=== PATIENT | male | born 1990 | race Caucasian/White ===

== ENCOUNTER 2018-03-01 14:56 | Emergency (ER) | payer SELFPAY ==
[2018-03-01 14:56] VITALS: BP 133/76; PULSE 119; RESP 16; TEMP 36.6; O2SAT 98; BMI 29.2
--- NOTE | 2018-03-01 15:39 | ED.VISSUMM ---
- ER Visit Summary Date of Service: 03/01/18 Chief Complaint: Back pain History of Present Illness: The patient is a 27 M who presents with back pain for the past 2 weeks. Patient states pain began gradually and has been getting worse. Patient states the pain is worse with sitting. Patient states nothing seems to help the pain. Patient describes the pain as sharp. Patient states the pain is localized to the right lower lumbar area. Patient denies any radiation of the pain. Patient denies any paresthesias or weakness. Patient denies any bowel or bladder changes. Patient denies any saddle anesthesia. Physical Examination: Vital signs are stable. Patient is afebrile. Patient is in no acute distress. Muscular skeletal exam revealed tenderness and spasm of the right lumbar paraspinal muscles. There is tenderness over the sciatic notch. There is no bony crepitance or step-off. There is no edema or ecchymosis. Straight leg raises were negative bilaterally. There is good range of motion of the lumbar spine. Strength is 5/5 bilaterally upper and lower extremities. There are no sensory deficits noted. Deep tendon reflexes are 2+/4 bilaterally. The remaining physical exam is within normal limits. Emergency Department Course and Treatment: Patient was advised that this is most likely muscular strain and sciatica. Patient was instructed to follow-up with his primary care physician in 5-7 days. Patient was given a prescription for Naprosyn. Patient was instructed to use ice to the area. Patient was instructed to return if worse in any way. Patient understood and was agreeable with the plan. All questions were answered. Disposition: Discharge home Impression: Sciatica This note was generated with [employer] dictation software. It may contain incorrect words, spelling, and punctuation that were not noted in review of the chart prior to signing ED Disposition - Plan for ED Patient: Disposition: Home or Assisted Living Chief Complaint: Back Diagnosis: Sciatica of right side Instructions: ED Sciatica Prescriptions: Naproxen [Naprosyn] 500 mg PO BID PRN #20 tab Referrals: Care Physician,No Primary [Primary Care Provider] -
--- NOTE | 2018-03-01 15:51 | ED.RN ---
PT GIVEN WRITTEN AND VERBAL DISCHARGE INSTRUCTIONS AND HOME GOING PRESCRIPTIONS. PT VERBALIZES UNDERSTANDING AND DENIES ANY FURTHER QUESTIONS. PT AMBULATES OUT OF DEPT BY SELF NO ASSISTANCE FROM STAFF INDICATED.
== END 2018-03-01 15:53 | disposition home or self-care (01) ==
PROVIDERS: Emergency Provider Emergency Medicine
DX: M54.31 Sciatica, right side (principal); M62.830 Muscle spasm of back; Z72.0 Tobacco use
CPT/HCPCS: 99282

== ENCOUNTER 2019-07-16 10:08 | Emergency (ER) | payer SELFPAY ==
[2019-07-16 10:09] VITALS: BP 162/88; PULSE 107; RESP 17; TEMP 36.8; O2SAT 97; BMI 27.4
--- NOTE | 2019-07-16 10:33 | RAD_ITS ---
STUDY: X-RAY CHEST REASON FOR EXAM: Male, 29 years old. COUGH, CP X 1 WK. TECHNIQUE: PA and lateral views of the chest. COMPARISON: July 23, 2014. FINDINGS: The lungs are clear and expanded. There is no demonstrated pleural abnormality. Normal size heart. Normal mediastinum and barbie. Normal visualized pulmonary arteries. Normal visualized aortic arch and descending thoracic aorta. Normal visualized thoracic spine. Normal visualized ribs, clavicles, and shoulders. There is no demonstrated abnormality of the visualized soft tissue structures of the upper abdomen. RAD/Chest PA and Lateral IMPRESSION: Stable examination. No radiographically evident acute cardiopulmonary disease. Electronically Signed: Chucho Carlin MD at 11:59 EST , Service support ,
--- NOTE | 2019-07-16 12:33 | ED.DCSUM_ITS ---
- ER Visit Summary Date of Service: 07/16/19 Chief Complaint: [Cough and left-sided chest pain] History of Present Illness: The patient is a 29 M [presents to the emergency department with complaint of a cough that is had for several weeks but thought he got better about a week and a half ago until yesterday started cough again. Patient states that he was exposed to his niece who also had some sort of an upper respiratory infection. Patient has had subjective fever at home. Patient states that at times he has blood-tinged sputum when he coughs. He denies recent travel.] Physical Examination: [HEENT-PERRLA, EOMI. Cranial nerves II through XII grossly intact. TMs clear. Mucous membranes moist. No adenopathy. Cardiovascular-regular rate and rhythm without murmur or ectopy Lungs-clear to auscultation, chest wall stable without crepitus or subcu emphysema Abdomen-normoactive bowel sounds, soft, nontender, no rebound or rigidity, no peritoneal signs. Extremities-intact ?4, normal range of motion, normal pulses, atraumatic] Test Results: [X-ray obtained was unremarkable.] Emergency Department Course and Treatment: [He was started on doxycycline] Treatment Plan: [We will be treated with doxycycline and Tessalon Perles. Patient will be referred to primary care physician agricultural extension officer for no doc for follow-up] Disposition: [Discharged home in stable condition] Impression: [Bronchitis] This note was generated with [employer] dictation software. It may contain incorrect words, spelling, and punctuation that were not noted in review of the chart prior to signing ED Disposition - Plan for ED Patient: Referrals: Care Physician,No Primary [Primary Care Provider] -
--- NOTE | 2019-07-16 12:35 | ED.DEP ---
ED Disposition - Plan for ED Patient: Instructions: BRONCHITIS, Antiobiotic Treatment (Adult) Prescriptions: Doxycycline 100 mg PO BID #20 cap Prescription Printed Benzonatate [Tessalon Perle] 200 mg PO TID PRN PRN #20 cap PRN Reason: Cough Prescription Printed Referrals: Care Physician,No Primary [Primary Care Provider] - Antonio Zurita III, MD [STAFF PHYSICIAN] - 5-7 Days
[2019-07-16] MEDS: Doxycycline 100 MG CAPSULE PO (12:47)
== END 2019-07-16 12:51 | disposition home or self-care (01) ==
LOC: ED 10:38
PROVIDERS: Emergency Provider Emergency Medicine
DX: J40 Bronchitis, not specified as acute or chronic (principal); R04.2 Hemoptysis; Z72.0 Tobacco use
CPT/HCPCS: 71046; 99283

== ENCOUNTER 2019-07-29 02:52 | Emergency (ER) | payer SELFPAY ==
[2019-07-29 02:53] VITALS: BP 137/74; PULSE 113; RESP 15; TEMP 36.6; O2SAT 98; BMI 28.3
--- NOTE | 2019-07-29 03:04 | ED.RN ---
PER PT REQUEST, [facility] [facility] CONTACTED TO SPEAK WITH THE PATIENT
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
== END 2019-07-29 03:47 | disposition left against medical advice (07) ==
PROVIDERS: Emergency Provider Emergency Medicine
DX: Z53.21 Procedure and treatment not carried out due to patient leaving prior to being seen by health care provider (principal)
CPT/HCPCS: 99281

== ENCOUNTER 2020-03-18 17:46 | Emergency (ER) | payer SELFPAY ==
[2020-03-18 17:46] VITALS: BP 134/84; PULSE 103; RESP 16; TEMP 36.1
[2020-03-18 17:47] VITALS: BP 134/84; PULSE 103; RESP 16; TEMP 36.1; BMI 27.9
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
--- NOTE | 2020-03-18 18:35 | ED.DEP ---
ED Disposition - Plan for ED Patient: Instructions: ED Fx Toe Closed Prescriptions: Naproxen [Naprosyn] 500 mg PO BID PRN #20 tablet Referrals: Hayden Hooks DPM [STAFF PHYSICIAN] -
--- NOTE | 2020-03-18 18:52 | ED.RN ---
DISCHARGE INSTRUCTIONS GIVEN TO AND REVIEWED WITH PATIENT, PATIENT DENIES QUESTIONS OR CONCERNS AND VOICES UNDERSTANDING OF DISCHARGE INSTRUCTIONS. PT AMBULATES OUT OF ROOM WITH STEADY GAIT.
== END 2020-03-18 18:53 | disposition home or self-care (01) ==
LOC: ED 18:32
PROVIDERS: Emergency Provider Emergency Medicine
DX: S92.912A Unspecified fracture of left toe(s), initial encounter for closed fracture (principal); W20.8XXA Other cause of strike by thrown, projected or falling object, initial encounter
CPT/HCPCS: 73630; 99283

== ENCOUNTER 2020-08-30 17:23 | Emergency (ER) | payer MEDICAID, SELFPAY ==
[2020-08-30 17:24] VITALS: BP 137/61; PULSE 95; RESP 16; TEMP 36; O2SAT 96; BMI 29.2
--- NOTE | 2020-08-30 17:50 | ED.VIS.GEN ---
History of Present Illness Chief Complaint: Sore Throat Informant: Patient Narrative: 30-year-old male with no significant past medical history presents with concern for congestion and sore throat that began 5 days ago. States that he was taking Tylenol thinking that it would maybe was the flu and that his congestion has persisted. States he has had a slight cough but is a current smoker. Denies any shortness of breath or chest pain. Denies any nausea, vomiting, abdominal pain, urinary symptoms. Past Medical History - Allergies and Home Meds Allergies/Adverse Reactions: Allergies No Known Allergies Allergy (Verified 08/30/20 17:23) Primary Care Physician: Care Physician,No Primary [Primary Care Provider] - Prior records reviewed: Yes Past Medical History: None Surgical History: no surgical history Lives: Alone Smoking Status: Current every day smoker Alcohol: None Drugs: None Review of Systems General: Denies: Chills, Fever, Sweats Eyes: Denies: Visual changes - bilaterally, Diplopia ENT: Reports: Sore throat. Denies: Rhinorrhea Cardiovascular: Denies: Chest pain, Palpitations Respiratory: Denies: Dyspnea, Cough, Dyspnea on exertion Gastrointestinal: Denies: Abdominal pain, Nausea, Vomiting, Diarrhea, Melena, Hematochezia Genitourinary: Denies: Dysuria, Hematuria, Frequency Musculoskeletal: Denies: Back pain, Extremity Pain Skin: Denies: Rash, Wounds Neurological: Denies: Headache, Weakness, Numbness Physical Exam Vital Signs/Narrative: Vital Signs Temp Pulse Resp BP Pulse Ox 08/30/20 17:24 96.8 F L 95 16 137/61 H 96 Inital Vital Signs reviewed: Yes General: Well nourished, Well developed, No Acute Distress Head: Normocephalic, Atraumatic Eyes: Perrl, EOMI ENT: Moist mucous membranes, No rhinorrhea, - - No posterior erythema or edema. Uvula midline. Neck: Supple, Nontender Cardiovascular: Regular rate, Regular rhythm, No murmurs Respiratory: No distress, CTA bilaterally, Chest nontender Abdomen: Soft, Nontender, Nondistended, Normal bowel sounds Back: Nontender, Normal Inspection Extremities: Nontender, No edema Skin: Normal color, No rash Neurological: Alert, Oriented x3, Cranial nerves II-XII grossly intact, Normal Strength, Normal Sensation Psychological: Normal affect, Normal Mood Diagnostic/Tx/Re-eval - Medical Decision Making Appears well and nontoxic. Vital signs within normal limits. No evidence of peritonsillar abscess. Rapid strep and Covid negative. Patient will be given Decadron in the emergency department and Flonase for home. Advised on continued supportive care with Tylenol as needed. Asked to return for new or worsening symptoms. Patient agreeable and discharged home in stable condition. Impression: 1. Viral pharyngitis ED Disposition - Plan for ED Patient: Disposition: Home or Assisted Living Instructions: ED Pharyngitis, Viral Prescriptions: Fluticasone 0.05% [Flonase Nasal [place]] 2 spray NASAL DAILY #1 nasal.sry Prescription Printed Referrals: Juan Manuel Chew DO [NON CLINICAL AFFILIATE] - 2 Days
[2020-08-30] MEDS: dexAMETHasone 10 MG/ML Vial PO.IVFORM (18:41)
[2020-08-30 18:42] VITALS: RESP 16
== END 2020-08-30 18:44 | disposition home or self-care (01) ==
PROVIDERS: Emergency Provider Emergency Medicine
DX: J02.8 Acute pharyngitis due to other specified organisms (principal); B97.89 Other viral agents as the cause of diseases classified elsewhere; R05 Cough; F17.200 Nicotine dependence, unspecified, uncomplicated
CPT/HCPCS: 87426; 87880; 99283

== ENCOUNTER 2022-10-17 14:47 | Emergency (ER) | payer MEDICAID, SELFPAY ==
[2022-10-17 14:48] VITALS: BP 142/88; PULSE 102; RESP 18; TEMP 36; O2SAT 96; BMI 29.2
--- NOTE | 2022-10-17 15:32 | ED.VIS.DENTA ---
HPI History of Present Illness Chief Complaint: Dental Detail of Chief Complaint: Dental pain right lower tooth Informant: patient Onset/Context/Timing Onset: Yesterday Context: Sudden Onset Timing: Continuous Current Severity: Mild Maximum Severity: Moderate Worsened by: Chewing Relieved by: NSAIDs and Topicals Associated Symptoms Assocated Symptom - Dental: jaw swelling and face swelling; Negative for fever, cold sensitivity or hot sensitivity Narrative Narrative: Patient is a 32-year-old male who presents with dental pain. He denies fever, chills night sweats. [place] history medic fever, heart murmur, mitral valve prolapse or SBE. He is on no immunosuppressive meds. He does endorse facial swelling. He denies trouble swallowing. He denies change in voice. He denies skin lesions. He does not have a dentist. Prior similar symptoms: Yes Recent Illness/Hospitalization: No PFSH PFSH Home Medications fluticasone propionate 50 mcg/actuation nasal spray,suspension 2 spray NASAL DAILY ##1 08/30/20 [Rx Last Taken Unknown] hydrocodone-acetaminophen 5-325mg 5mg-325mg 1 tab PO Q4H PRN PRN Pain 2 days #10 TABLETS 10/17/22 [Rx Last Taken Unknown] naproxen 500 mg tablet 500 mg PO BID #14 tabs 10/17/22 [Rx Last Taken Unknown] penicillin V potassium 500 mg tablet 500 mg PO 4X/DAY #40 tabs 10/17/22 [Rx Last Taken Unknown] Allergy/AdvReac Type Severity Reaction Status Date / Time No Known Allergies Allergy Verified 10/17/22 14:50 Social History (Updated 10/17/22 @ 15:[address] Selvin Potter MD) household members: none Smoking Status: Current every day smoker substance use type: does not use ROS ROS ED Constitutional Constitutional ED: Denies chills, fever(s), subjective, sweats or weight loss Eyes Eyes: Denies blurry vision or change in vision ENT ENT ED: Reports other Details: Detailed in the HPI narrative ; Denies ear pain, rhinorrhea or sore throat Cardiovascular Cardiovascular: Reports other Details: Detailed in the HPI narrative ; Denies chest pain or palpitations Respiratory/Chest Respiratory/Chest: Denies dyspnea Gastrointestinal Gastrointestinal: Denies nausea or vomiting Hematologic/Lymphatic Hematologic/Lymphatic: Denies easy bleeding or easy bruising EXAM Physical Exam Const Vital Signs: 10/17/22 14:48 Temperature 96.8 F L Temperature Source Temporal Pulse Rate 102 H Respiratory Rate 18 Blood Pressure 142/88 H Blood Pressure Mean 106 Pulse Ox 96 Oxygen Delivery Method Room Air Positive well nourished, well developed and unkempt General Appearance ED: unkempt and well developed HEENT Reports TM's clear HEENT Narrative: Patient has erosion of the second molar on the right, tooth #31. There is no fluctuance. There is facial swelling and swelling of the mandible and submandibular area. The trachea is midline. There is no inspiratory stridor. The floor of the mouth appears normal. There is no findings to suggest Ludewig's angina at this point. He has no trismus. Negative for trauma or tenderness Face and Sinus: Negative for sinuses nontender Tympanic Membrane ED: Yes TM's clear Mouth ED: Yes oral and palatal mucosa normal, Yes lips normal, Yes tongue normal, Yes salivary gland normal, No mouth trauma and Yes oral and palatal mucosa abnormal Mouth: oral and palatal mucosa normal, lips normal, tongue normal, salivary gland normal, No mouth trauma and oral and palatal mucosa abnormal Teeth and Gingiva: abnormal tooth and associated gingiva, caries, gingiva abnormal, poor dentition and teeth discoloration Throat: posterior oropharynx normal Eyes PERRL and EOMs intact bilaterally General Eye ED: Negative for pale conjunctiva or scleral icterus Neck no lymphadenopathy, supple and no JVD General: anterior neck swelling, tenderness and submandibular swelling; Negative for normal visual inspection Chest Wall inspection of chest normal and palpation of chest normal Resp normal respiratory effort, no retractions and clear to auscultation bilaterally Cardio regular rhythm, S1 normal heart sound, S2 normal heart sound and no murmurs Rate: tachycardic Neuro oriented x3 and CN's II-XII intact bilaterally Sensorium / Orientation: alert Psych Appearance: unkempt Skin no rashes or lesions noted MDM MDM MDM Narrative Medical decision making narrative: Patient was treated with penicillin, NSAID and opiate analgesic. He was given dental sheet. He was informed the only person who can alleviate his pain is a dentist. He needs to contact the dentist for definitive care. Patient has dental caries involving the dentin, pulp as well as a dental infection. There is no evidence clinically of reversible or irreversible pulpitis. There is no evidence for Ludewig's angina. Discharge Plan Triage Chief Complaint: Dental ED Provider: Selvin Potter Dx/Rx/DC Orders Clinical Impression: Dental abscess, Dental caries extending into dentine, Dental caries extending into pulp, Gingivitis, Periodontal disease Prescriptions: New hydrocodone-acetaminophen [hydrocodone-acetaminophen] 5-325 mg tablet 1 tab PO Q4H PRN PRN (Reason: Pain) 2 Days Qty: 10 0RF penicillin V potassium 500 mg tablet 500 mg PO 4X/DAY Qty: 40 0RF naproxen 500 mg tablet 500 mg PO BID Qty: 14 0RF No Action fluticasone propionate 1 SPRAY spray,suspension 2 spray NASAL DAILY Qty: 1 0RF Primary Care Provider: Care Physician,No Primary Referrals: Care Physician,No Primary [Primary Care Provider] - Dentist,Your [STAFF PHYSICIAN] - 5-7 Days Disposition Disposition: Home, Self Care
[2022-10-17] MEDS: Naproxen 250 MG Tablet 500 MG PO (15:46)
[2022-10-17] MEDS: HYDROcodone Bitartrate/Apap 5/325 Tablet PO (15:46)
[2022-10-17] MEDS: Penicillin Vk 250 MG Tablet 500 MG PO (15:46)
== END 2022-10-17 15:49 | disposition home or self-care (01) ==
PROVIDERS: Emergency Provider Emergency Medicine; Visit Provider Emergency Medicine
DX: K04.7 Periapical abscess without sinus (principal); K05.10 Chronic gingivitis, plaque induced; K02.9 Dental caries, unspecified; F17.200 Nicotine dependence, unspecified, uncomplicated
CPT/HCPCS: 99283

== ENCOUNTER 2023-05-09 00:37 | Emergency (ER) | payer MEDICAID, SELFPAY ==
[2023-05-09 00:39] VITALS: BP 132/84; PULSE 102; RESP 15; TEMP 36.2; O2SAT 99; BMI 29.5
--- NOTE | 2023-05-09 00:58 | EX.ED.DYSGE1 ---
HPI History of Present Illness Chief Complaint: Other, Pain/Inj Informant: patient Narrative Narrative: Patient is a 33-year-old male with past medical history of smoking. He states that for the past 14 to 18 days he has had congestion sore throat and cough. He states that over the past week the cough has worsened and now he is having chest pain and increased phlegm production. He states that he has been giving himself time for the symptoms to improve but they slowly seem to be worsening and he is concerned he may have developed pneumonia secondary to the worsening symptoms and therefore comes in for evaluation. [facility] Medical History Anxiety Depression Home Medications fluticasone propionate 50 mcg/actuation nasal spray,suspension 2 spray NASAL DAILY ##1 08/30/20 [Rx Last Taken Unknown] hydrocodone-acetaminophen 5-325mg 5mg-325mg 1 tab PO Q4H PRN PRN Pain 2 days #10 TABLETS 10/17/22 [Rx Last Taken Unknown] naproxen 500 mg tablet 500 mg PO BID #14 tabs 10/17/22 [Rx Last Taken Unknown] penicillin V potassium 500 mg tablet 500 mg PO 4X/DAY #40 tabs 10/17/22 [Rx Last Taken Unknown] albuterol sulfate 90 mcg/actuation aerosol inhaler (Ventolin HFA) 2 puff inhalation Q4H PRN PRN Wheezing/SOB #1 device 05/09/23 [Rx Last Taken Unknown] doxycycline hyclate 100 mg capsule 100 mg PO BID 10 days #20 caps 05/09/23 [Rx Last Taken Unknown] hydrocodone-homatropine 5 mg-1.5 mg/5 mL (5 mL) oral syrup (Hycodan) 5 ml PO 4X/DAY PRN PRN cough 7 days #140 mL 05/09/23 [Rx Last Taken Unknown] prednisone 20 mg tablet 40 mg (2 x 20 mg) PO DAILY 5 days #10 tabs 05/09/23 [Rx Last Taken Unknown] Allergy/AdvReac Type Severity Reaction Status Date / Time No Known Allergies Allergy Verified 10/17/22 14:50 Social History (Updated 10/17/22 @ 15:[address] Selvin Potter MD) household members: none Smoking Status: Current every day smoker tobacco type: cigarettes substance use type: does not use ROS ROS ED Constitutional Constitutional ED: Denies chills or fever(s) ENT ENT ED: Reports rhinorrhea and sore throat Cardiovascular Cardiovascular: Denies chest pain Respiratory/Chest Respiratory/Chest: Reports cough and dyspnea Gastrointestinal Gastrointestinal: Denies abdominal pain, diarrhea, nausea or vomiting Genitourinary Genitourinary ED: Denies dysuria Musculoskeletal Musculoskeletal: Reports myalgias Integumentary Denies rash Neurologic Neurologic: Denies headache(s) Hematologic/Lymphatic Hematologic/Lymphatic: Denies easy bleeding or easy bruising EXAM Physical Exam Const Vital Signs: 05/09/23 00:39 05/09/23 01:13 Temperature 97.2 F L Temperature Source Temporal Pulse Rate 102 H 116 H Respiratory Rate 15 16 Respiratory Pattern Normal Blood Pressure 132/84 H Blood Pressure Mean 100 Pulse Ox 99 Oxygen Delivery Method Room Air Positive well nourished and well developed General Appearance ED: well developed; Negative for pallor HEENT HEENT Narrative: Nasal mucosa is hyperemic and boggy with enlarged inferior nasal turbinates Posterior pharynx displays cobblestoning consistent with sinus drainage without airway edema or compromise No tongue or lip swelling No secondary changes in the posterior pharynx to suggest infection Eyes PERRL and EOMs intact bilaterally Neck supple and no JVD Neck Narrative: Positive anterior cervical of adenopathy noted Chest Wall Chest Narrative: Mild diffuse pain of the anterior chest wall without bony deformity or crepitance Resp normal respiratory effort Resp Narrative: Breath sounds are diminished throughout with faint wheeze and rhonchi in the bilateral lower lobes without nasal flaring retractions tachypnea or accessory muscle use Cardio regular rate and regular rhythm Rate: other Other Details: Heart is regular rate and rhythm without murmurs rubs or gallops Extremity normal to inspection Extremity Narrative: No asymmetric edema no pitting edema negative Homans' sign bilaterally Neuro oriented x3, CN's II-XII intact bilaterally and no sensory deficits noted Sensorium / Orientation: alert Motor Exam: strength 5/5 throughout Psych mental status grossly normal Skin no rashes or lesions noted General Skin Exam: Negative for jaundice or pallor MDM MDM MDM Narrative Medical decision making narrative: Patient presented to the ER in no acute respiratory distress satting 98 to 100% on room air. He reported approximately 2-1/2 weeks of congestion and cough that he felt have been worsening over the last few days. Differential diagnosis is for upper respiratory tract infection versus bronchitis versus pneumonia versus pneumothorax. As the patient is not in respiratory distress and not requiring supplemental oxygen I do not feel need for laboratory studies but we will simply check a chest x-ray to look for pleural effusion pneumothorax or pneumonia. X-ray revealed no acute findings. Patient was medicated with a DuoNeb as well as steroids and on reevaluation did have improvement of his wheezes and rhonchi in lower lobes and remained in no acute respiratory distress. At this time based on his history and exam I do feel he has bronchitis and has not had any improvement over the past 14 to 18 days and patient does have a history of smoking I will place him on a round of antibiotics. However as he does not have signs of respiratory distress or need for supplemental oxygen he is otherwise safe for discharge History & Record Review Discussion w/independent historian: Patient Radiography Diagnostic Testin view chest x-ray as interpreted by the emergency medicine physician reveals no acute infiltrate pneumothorax or pleural effusion Discharge Plan Triage Chief Complaint: Other, Pain/Inj ED Provider: Lucas Ragland Dx/Rx/DC Orders Clinical Impression: Bronchitis Instructions: ED Bronchitis with Wheezing (Adult) Prescriptions: New doxycycline hyclate 100 mg capsule 100 mg PO BID 10 Days Qty: 20 0RF prednisone 20 mg tablet 40 mg PO DAILY 5 Days Qty: 10 0RF albuterol sulfate [Ventolin HFA] 90 mcg/actuation HFA aerosol inhaler 2 puff inhalation Q4H PRN PRN (Reason: Wheezing/SOB) Qty: 1 0RF hydrocodone-homatropine [Hycodan] 5-1.5 mg/5 mL (5 mL) syrup 5 ml PO 4X/DAY PRN PRN (Reason: cough) 7 Days Qty: 140 0RF No Action fluticasone propionate 1 SPRAY spray,suspension 2 spray NASAL DAILY Qty: 1 0RF hydrocodone-acetaminophen [hydrocodone-acetaminophen] 5-325 mg tablet 1 tab PO Q4H PRN PRN (Reason: Pain) 2 Days Qty: 10 0RF penicillin V potassium 500 mg tablet 500 mg PO 4X/DAY Qty: 40 0RF naproxen 500 mg tablet 500 mg PO BID Qty: 14 0RF Primary Care Provider: Care Physician,No Primary Referrals: Colton Cardenas MD [Med Staff - Active Staff] - Care Physician,No Primary [Primary Care Provider] - Activity Restrictions/Additional Instructions: Your history and exam is consistent with bronchitis. Take your medications as directed to help control this/resolve it. If you do not have any improvement of your symptoms or have any further concerns please return to the ER for repeat evaluation Disposition Disposition: Home, Self Care
--- NOTE | 2023-05-09 01:00 | RAD_ITS ---
INDICATION: cough EXAMINATION/TECHNIQUE: X-RAY - XR Chest 2 Views COMPARISON: Two-view chest x-ray from 07/16/2019 FINDINGS: LINES/DEVICES: None. LUNGS: No pulmonary edema or focal airspace consolidation. No sizable pleural effusion. No pneumothorax detected. MEDIASTINUM AND CARDIOVASCULAR STRUCTURES: Heart size within normal limits. Mediastinal contours unremarkable. BONES AND SOFT TISSUES: No acute findings. RAD/Chest PA and Lateral IMPRESSION: No radiographic evidence of acute cardiopulmonary disease. Electronically Signed: Doug Aleman MD at 1:45 EDT ,
[2023-05-09] MEDS: Ipratropium/Albuterol Sulfate 3 ML AMPUL.NEB INHALATION (01:09)
[2023-05-09] MEDS: guaiFENesin/Codeine 5 ML UDC 10 ML PO (01:12)
[2023-05-09] MEDS: predniSONE 20 MG Tablet 60 MG PO (01:12)
[2023-05-09 01:13] VITALS: PULSE 116; RESP 16
[2023-05-09] MEDS: Doxycycline 100 MG CAPSULE PO (01:39)
[2023-05-09 01:40] VITALS: BP 132/65; PULSE 80; RESP 12; O2SAT 98
== END 2023-05-09 01:43 | disposition home or self-care (01) ==
PROVIDERS: Emergency Provider Emergency Medicine; Visit Provider Emergency Medicine
DX: J40 Bronchitis, not specified as acute or chronic (principal); F17.210 Nicotine dependence, cigarettes, uncomplicated
CPT/HCPCS: 71046; 94640; 99283

== ENCOUNTER 2023-10-08 03:31 | Emergency (ER) | payer MEDICAID, SELFPAY ==
[2023-10-08] VITALS (21 sets, daily range): BP systolic 90–131; BP diastolic 41–94; PULSE 70–158; RESP 15–35; TEMP 36.1–36.7; O2SAT 96–99; BMI 28.3
--- NOTE | 2023-10-08 03:43 | EX.ED.VIS.PS ---
HPI HPI - Psych History of Present Illness Chief Complaint: Overdose Detail of Chief Complaint: Suicidal ideation and drug overdose Informant: patient Narrative Narrative: Patient presents via EMS from home with suicidal ideation and drug overdose. Patient states that he took an overdose of Seroquel 50 mg tablets about 18-20 of them. Patient also had about 6 beers to drink. He thinks he took them about 45 minutes to an hour ago. Patient states that just mentally everything kind of blew up today. He denies homicidal ideation. He denies auditory or visual hallucinations. PFSH [facility] Medical History Anxiety Depression Home Medications NK 10/08/23 [History Last Taken Unknown] Allergy/AdvReac Type Severity Reaction Status Date / Time No Known Allergies Allergy Verified 10/08/23 03:41 Social History (Updated 10/17/22 @ 15:[address] Selvin Potter MD) household members: none Smoking Status: Current every day smoker tobacco type: cigarettes substance use type: does not use ROS ROS ED Review of Systems ROS Unobtainable: other Constitutional Constitutional ED: Reports lethargy; Denies chills, fever(s), sweats or weight loss Eyes Eyes: Denies blurry vision, change in vision or diplopia ENT ENT ED: Denies rhinorrhea or sore throat Cardiovascular Cardiovascular: Denies chest pain, orthopnea or racing heartbeat Respiratory/Chest Respiratory/Chest: Denies cough, dyspnea, dyspnea on exertion, orthopnea or sputum Gastrointestinal Gastrointestinal: Denies abdominal pain, diarrhea, nausea or vomiting Genitourinary Genitourinary ED: Denies dysuria, hematuria or urinary frequency Musculoskeletal Musculoskeletal: Denies arthralgias, back pain, myalgias or neck pain Integumentary Denies abscess, Abrasions or rash Neurologic Neurologic: Denies headache(s) or weakness Psychiatric Psychiatric: Denies anxiety, depression or suicidal thoughts Endocrine Endocrinology: Denies polydipsia, polyphagia or polyuria Hematologic/Lymphatic Hematologic/Lymphatic: Denies easy bleeding, easy bruising or lymphadenopathy Allergic/Immunologic Allergic/Immunologic ED: Denies mouth swelling, tongue swelling or urticaria EXAM Physical Exam Narrative Exam Narrative: Patient somnolent Const Vital Signs: 10/08/23 03:32 10/08/23 04:00 10/08/23 04:15 Temperature 98.0 F Temperature Source Temporal Pulse Rate 158 H 123 H Respiratory Rate 18 33 H Blood Pressure 131/76 H 115/74 112/73 Blood Pressure Mean 94 88 86 Pulse Ox 96 Oxygen Delivery Method Room Air 10/08/23 04:30 10/08/23 04:45 10/08/23 05:00 Temperature Temperature Source Pulse Rate 124 H 136 H Respiratory Rate 31 H 28 H Blood Pressure 112/67 99/53 L 101/48 L Blood Pressure Mean 80 66 62 Pulse Ox 96 Oxygen Delivery Method 10/08/23 05:15 10/08/23 05:30 10/08/23 05:45 Temperature Temperature Source Pulse Rate 142 H 123 H 119 H Respiratory Rate 35 H 26 H 23 H Blood Pressure 101/53 L 103/61 95/53 L Blood Pressure Mean 67 72 66 Pulse Ox Oxygen Delivery Method 10/08/23 06:00 10/08/23 06:15 10/08/23 06:30 Temperature Temperature Source Pulse Rate 112 H 111 H 111 H Respiratory Rate 22 H 26 H 28 H Blood Pressure 97/47 L 93/45 L 92/46 L Blood Pressure Mean 61 60 60 Pulse Ox Oxygen Delivery Method 10/08/23 06:45 10/08/23 07:00 Temperature Temperature Source Pulse Rate 112 H 125 H Respiratory Rate 26 H 31 H Blood Pressure 90/41 L 93/42 L Blood Pressure Mean 56 57 Pulse Ox Oxygen Delivery Method Positive well nourished and well developed General Appearance ED: well developed and NAD HEENT Reports TM's clear HEENT Narrative: Dry mucous membranes normocephalic and atraumatic; Negative for trauma or tenderness Tympanic Membrane ED: Yes TM's clear Eyes PERRL and EOMs intact bilaterally General Eye ED: Negative for pale conjunctiva or scleral icterus Neck no lymphadenopathy, supple and no JVD General: Negative for tenderness Chest Wall inspection of chest normal and palpation of chest normal Chest: Negative for tenderness Resp normal respiratory effort and clear to auscultation bilaterally Effort and Inspection: Negative for respiratory distress or pain with movement Auscultation: Negative for rhonchi, wheezes or diminished lung sounds Cardio S1 normal heart sound, S2 normal heart sound and no murmurs Rate: regular rate and tachycardic Peripheral Pulses: pulses 2+ throughout GI normal to inspection, nondistended, normoactive bowel sounds, soft to palpation, non-tender, non-distended and no masses Back/Spine no CVA tenderness and no thoracic nor lumbar tenderness Extremity normal to inspection General Extremety ED: Negative for edema General Extremity: Negative for edema Neuro oriented x3, CN's II-XII intact bilaterally, no sensory deficits noted and gait normal Sensorium / Orientation: awake, alert, oriented to person, oriented to place and oriented to time Motor Exam: strength 5/5 throughout and strength abnormal Psych mental status grossly normal Skin no rashes or lesions noted and no wounds MDM MDM MDM Narrative Medical decision making narrative: Patient presents with intentional drug overdose. Suicidal ideation. Alcohol intoxication. Will obtain toxicology screen as well as alcohol level. Will obtain Tylenol and salicylate level. Will give normal saline. He is not a candidate for charcoal as he is quite somnolent and concern for aspiration and also has been approximately an hour since the ingestion. Will obtain basic labs and EKG. CBC with differential unremarkable. Chemistries unremarkable. Toxicology was obtained for salicylates and acetaminophen levels were normal. Alcohol was 206. Patient will be ready to be evaluated by crisis at 9:40 AM. Urine tox screen still pending. Care of patient turned over to morning physician awaiting normalization of alcohol and evaluation by crisis and final disposition. Lab Data Attestation: I reviewed the patient's lab results. Labs: Laboratory Results - last 24 hr 10/08/23 10/08/23 10/08/23 03:55 04:40 05:20 WBC 5.6 RBC 4.69 Hgb 14.3 Hct 42.3 MCV 90.2 MCH 30.5 MCHC 33.8 RDW Std Deviation 41.1 RDW Coeff of Rush 12.6 Plt Count 246 MPV 9.4 Immature Gran % (Auto) 0.500 Neut % (Auto) 46.4 L Lymph % (Auto) 44.5 H Gilchrist % (Auto) 6.8 Eos % (Auto) 1.1 Baso % (Auto) 0.7 Absolute Neuts (auto) 2.6 Absolute Lymphs (auto) 2.48 Nucleated RBC % 0 Sodium 145 Potassium 3.4 L Chloride 111 H Carbon Dioxide 25.0 Anion Gap 9 BUN 9 Creatinine 0.94 Estim Creat Clear Calc 100.76 Est GFR (MDRD) Af Amer 120 Est GFR (MDRD) Non-Af 99 BUN/Creatinine Ratio 9.6 L Glucose 123 H Calcium 8.7 Salicylates Cancelled 2.2 L Urine Opiates Screen NEGATIVE Urine Methadone Screen NEGATIVE Acetaminophen Cancelled < 2.0 L Ur Barbiturates Screen NEGATIVE Ur Phencyclidine Scrn NEGATIVE Ur Amphetamines Screen NEGATIVE MDMA (Ecstasy) Screen NEGATIVE U Benzodiazepines Scrn NEGATIVE Urine Cocaine Screen NEGATIVE U Cannabinoids Screen NEGATIVE Ur Drug Screen Comment Ethyl Alcohol Cancelled 206.0 EKG Initial EKG: Attestation: I personally reviewed and interpreted this EKG as follows: Comments: Sinus tachycardia with ventricular rate of [address] changes Discharge Plan Triage Chief Complaint: Overdose ED Provider: Timothy Merlos Dx/Rx/DC Orders Clinical Impression: Drug overdose, intentional, Suicidal ideation, Alcohol intoxication, Depression Prescriptions: No Action NK Primary Care Provider: Care Physician,No Primary Referrals: Care Physician,No Primary [Primary Care Provider] -
--- NOTE | 2023-10-08 03:46 | EKG12_ITS ---
Test Reason : OVERDOSE Blood Pressure : / mmHG Vent. Rate : 123 BPM Atrial Rate : 123 BPM P-R Int : 138 ms QRS Dur : 070 ms QT Int : 300 ms P-R-T Axes : 045 069 -12 degrees QTc Int : 429 ms Sinus tachycardia T wave abnormality, consider inferior ischemia Abnormal ECG Confirmed by Ian Padgett ([id number]), editor continuity and script JERRICA MCKEON ([id number]) on 10/11/2023 8:59:34 AM Referred By: ANGELICA Confirmed By:Ian Padgett
[2023-10-08 04:05] LABS: Absolute Lymphocyte Count 2.48 X10^3/uL (0.83-4.51); Absolute Neutrophil Count 2.6 X10^3/uL (2.0-7.7); Basophil# 0.04 X10^3/uL; Basophil% 0.7 % (0-1); Eosinophil# 0.06 X10^3/uL; Eosinophils% 1.1 % (0-5); Hematocrit 42.3 % (40-54); Hemoglobin 14.3 g/dL (13.0-16.5); Lymphocyte # 2.48 X10^3/ul (0.83-4.51); Lymphocyte % 44.5 % (19-41); Mean Corp Hgb Conc 33.8 g/dL (32-36); Mean Corpuscular Hgb 30.5 pg (27.0-32.0); Mean Corpuscular Volume 90.2 fL (80-94); Mean Platelet Vol. 9.4 fl (6.2-12.0); Monocyte# 0.38 X10^3/uL; Monocyte% 6.8 % (0-10); NRBC Flagged by Analyzer 0 % (0-5); Neutrophil # 2.58 X10^3/uL (2.7-7.7); Neutrophil % 46.4 % (47-70); Platelet Count 246 K/mm3 (150-450); RBC Distribution Width CV 12.6 % (11.6-14.6); RBC Distribution Width SD 41.1 fl (35.1-43.9); Red Blood Count 4.69 M/mm3 (4.6-6.2); White Blood Count 5.6 K/mm3 (4.4-11.0)
[2023-10-08 04:21] LABS: Anion Gap 9 (5-15); BUN 9 mg/dL (7-18); BUN/Creat Ratio 9.6 RATIO (10-20); Calcium,Total 8.7 mg/dL (8.5-10.1); Chloride 111 mmol/L (98-107); Creatinine, Serum 0.94 mg/dL (0.70-1.30); EST Glomerular Filtration Rate 99 mL/min (>60); Est Glom Filt Rate - Afr Amer 120 mL/min (>60); Estimated Creatinine Clearance 100.76 ml/min; Glucose 123 mg/dL (74-106); Potassium 3.4 mmol/L (3.5-5.1); Sodium Level 145 mmol/L (136-145)
[2023-10-08 05:06] LABS: Acetaminophen (Tylenol) Level < 2.0 ug/mL (10.0-30.0); Salicylate 2.2 mg/dL (2.8-20.0)
[2023-10-08 05:52] LABS: Amphetamine Urine VISTA NEGATIVE (<1000 ng/mL); Barbiturate Urine VISTA NEGATIVE (< 200 ng/mL); Benzodiazepine Urine VISTA NEGATIVE (< 200 ng/mL); Cocaine Urine VISTA NEGATIVE (< 300 ng/mL); Ecstacy Urine VISTA NEGATIVE (< 500 ng/mL); Methadone Urine VISTA NEGATIVE (< 300 ng/mL); PCP Urine VISTA NEGATIVE (< 25 ng/mL); THC Urine VISTA NEGATIVE (< 50 ng/mL); Vista UDS pH Range 5
[2023-10-08] MEDS: 0.9% Normal Saline (1000mL) 1,000 ML 999 ML IV (07:29)
--- NOTE | 2023-10-08 11:21 | ED.RN ---
This RN was given an ETA of 90 minutes-2 hours from [facility] ambulance
--- NOTE | 2023-10-08 11:27 | ED.RN ---
This RN attempted to call both intake and the nurse to nurse number that was given to us by Freddy Krause to give an ETA as requested, neither number answered,
--- NOTE | 2023-10-08 13:44 | ED.RN ---
This RN attempted to call report to [facility], phone rang and rang with no answer. Will attempt to call back.
--- NOTE | 2023-10-11 14:19 | CM.ED ---
Social Work Received call from patient's mother, Aliya Rebolledo, with expressed concern about patient's safety and inquiring as to whether patient was still in the ED or placed elsewhere. Aliya confirmed patient's name, date of , address, and emergency contacts, and even last phone number listed for emergency contacts ([phone] which is no longer in service). Aliya provided current cell phone for patient's mother ([phone]), and a work number for patient's father Atif (at [employer], ). Brief chart review while speaking with Aliya on the phone, and noted that [facility] social worker attempted to get collaborating information from the parents, but did not have a good number to do so; also noted patient's parents are primary support system. Aliya blancas was working when patient went to the ED and could not answer any phone calls due to working as a caregiver; not allowed to have phone on when working. Aliya blancas was told by a neighbor upon return home that heard over scanner the squad called to the home for a suspected overdose. Aliya reports patient has lived with his parents on and off his entire life. Patient is own guardian, per Aliya's report. Supportive listening offered, but did not disclose any information or confirmation as to patient's reason for visit to the ED. Aliyaras blancas called into the hospital and was told patient was sent to another hospital, but was not told where. Aliya reports to be a caregiver, and that patient lives with the parents. Much supportive listening offered. For continuity of care care of patient, did provide name of discharge destination of patient, though reinforced that said hospital will likely not communicate with with Aliya. This field underwriter encouraged Aliya to also reach out to [facility] to express concern. Aliya reports to her knowledge, patient has never overdosed before, and is worried about the patient, but thankful to know patient is somewhere safe. Updated patient's demographics to include current working number for parents, as well as the father's work number. -ZOHREH Reed
== END 2023-10-08 14:03 ==
LOC: ED 04:00
PROVIDERS: Emergency Provider Emergency Medicine; Visit Provider Emergency Medicine
DX: T43.592A Poisoning by other antipsychotics and neuroleptics, intentional self-harm, initial encounter (principal); F10.129 Alcohol abuse with intoxication, unspecified; F32.A Depression, unspecified; Y90.7 Blood alcohol level of 200-239 mg/100 ml; F17.210 Nicotine dependence, cigarettes, uncomplicated
CPT/HCPCS: 80048; 80307; 80320; 80329; 85025; 93005; 96360; 96361; 99283; J7030; A4216; G0480

== ENCOUNTER 2025-01-04 12:31 | Emergency (ER) | payer MEDICAID, SELFPAY ==
[2025-01-04 12:32] VITALS: BP 137/79; PULSE 100; RESP 17; TEMP 36.8; O2SAT 100; BMI 31.5
--- NOTE | 2025-01-04 15:24 | EDS_ITS ---
HPI History of Present Illness Chief Complaint: Rash Informant: patient Narrative Narrative: 34-year-old male presenting to the emergency room with concern for poison oak. Patient states he was cutting down a tree yesterday and is allergic to poison munira/oak. Patient states he does not have itching and rash on the legs does not spread to his arms torso. Denies any respiratory symptoms. PFSH PFSH Medical History Anxiety Depression Home Medications ?Medication ?Instructions ?Recorded ?Last Taken ?Type prednisone 20 mg tablet See Rx Instructions .Route 0 01/04/25 Unknown Rx .COMPLEX #24 tabs Allergy/AdvReac Type Severity Reaction Status Date / Time No Known Allergies Allergy Verified 01/04/25 12:35 Social History household members: none Smoking Status: Current every day smoker tobacco type: cigarettes substance use type: does not use ROS ROS ED Constitutional Constitutional ED: Denies chills, fever(s) or weight loss Eyes Eyes: Denies change in vision or diplopia ENT ENT ED: Denies ear pain, rhinorrhea or sore throat Cardiovascular Cardiovascular: Denies chest pain, orthopnea, palpitations or racing heartbeat Respiratory/Chest Respiratory/Chest: Denies cough, dyspnea or orthopnea Gastrointestinal Gastrointestinal: Denies abdominal pain, diarrhea, nausea or vomiting Genitourinary Genitourinary ED: Denies dysuria, hematuria or urinary frequency Musculoskeletal Musculoskeletal: Denies arthralgias or myalgias Integumentary Reports rash and other Details: Pruritus ; Denies abscess Neurologic Neurologic: Denies headache(s) or weakness Psychiatric Psychiatric: Denies anxiety, depression, suicidal ideation or suicidal thoughts Endocrine Endocrinology: Denies polydipsia, polyphagia or polyuria Allergic/Immunologic Allergic/Immunologic ED: Denies mouth swelling, tongue swelling or urticaria EXAM Physical Exam Const Vital Signs: 01/04/25 12:32 Temperature 98.2 F Temperature Source Oral Pulse Rate 100 Respiratory Rate 17 Blood Pressure 137/79 H Blood Pressure Mean 98 Pulse Ox 100 Oxygen Delivery Method Room Air Positive well nourished and well developed General Appearance ED: well developed HEENT Reports normocephalic, head/scalp atraumatic and moist mucous membranes Eyes PERRL and EOMs intact bilaterally Neck no lymphadenopathy, supple and no JVD Resp normal respiratory effort and clear to auscultation bilaterally Cardio regular rate, regular rhythm and no murmurs GI normal to inspection, nondistended, normoactive bowel sounds and non-tender Palpation: soft Back/Spine no CVA tenderness and normal ROM Extremity normal to inspection General Extremety ED: Negative for edema General Extremity: Negative for edema Neuro oriented x3 and CN's II-XII intact bilaterally Sensorium / Orientation: alert Motor Exam: strength 5/5 throughout Psych mental status grossly normal Mood & Affect: Negative for depressed or tearful Skin no wounds Skin Narrative: Patient has a rash on the lower extremities torso and upper extremities consistent with poison munira. I do not see evidence of secondary infection. MDM MDM MDM Narrative Medical decision making narrative: Differential diagnosis includes Naty dermatitis anaphylaxis allergic reaction secondary infection Patient be started on tapering doses of prednisone. He understands wound care as well as return instructions. History & Record Review Discussion w/independent historian: Patient Additional record(s) reviewed:: Prior ED visit Discharge Plan Triage Chief Complaint: Rash ED Provider: Landry Mcbride Dx/Rx/DC Orders Clinical Impression: Rhus dermatitis Instructions: Poison Munira [place] [facility] Prescriptions: New prednisone 20 mg tablet See Rx Instructions .ROUTE .COMPLEX Qty: 24 0RF Rx Instructions: 3 tabs p.o. daily x 4 days then 2 tabs p.o. daily x 4 days then 1 tab p.o. daily x 4 days Primary Care Provider: Care Physician,No Primary Referrals: Care Physician,No Primary [Primary Care Provider] - Print Language: Nicaraguan Disposition Disposition: Home, Self Care
[2025-01-04 15:41] VITALS: BP 128/82; PULSE 71; RESP 18; TEMP 36.6; O2SAT 100
== END 2025-01-04 15:43 | disposition home or self-care (01) ==
LOC: ED 15:27
PROVIDERS: Emergency Provider Emergency Medicine; Visit Provider Emergency Medicine
DX: L23.7 Allergic contact dermatitis due to plants, except food (principal); F17.210 Nicotine dependence, cigarettes, uncomplicated
CPT/HCPCS: 99282